=== PATIENT | male | born 1995 | race Caucasian/White ===

== ENCOUNTER 2017-05-31 11:49 | Emergency (ER) | payer BC, OTHER ==
[2017-05-31 12:12] VITALS: BP 110/84
[2017-05-31] MEDS ORDERED: Ondansetron ODT TAB* 4 MG PO ONE (12:24)
--- NOTE | 2017-05-31 13:10 | UC ---
Complaint Male HPI - HPI Summary HPI Summary: HEARTBURN, NAUSEA, VOMITING AND DIARRHEA SINCE 05/28/17. NO FEVER. NO ABDOMINAL PAIN. OCCASIONAL BURINING WITH URINATION. NO DISCHARGE. NO NEW SEXUAL PARTNERS. - History of Current Complaint Chief Complaint: UCGI Stated Complaint: NAUSEA VOMITING Time Seen by Provider: 05/31/17 12:01 Hx Obtained From: Patient Onset/Duration: Gradual Onset, Lasting Days, Still Present Timing: Lasting Days Severity Initially: Mild Severity Currently: Mild Pain Intensity: 1 Pain Scale Used: 0-10 Numeric Location: Suprapubic Character: Burning Associated Signs And Symptoms: Positive: Dysuria - MILD BURNING WITH URINATION, Nausea, Vomiting(# Of Episodes =) - 3 X PER DAY. Negative: Diaphoresis, Back Pain, Fever, Hematuria, Constipation - DIARRHEA, Blood in Stool, Rectal Pain - Allergies/Home Medications Allergies/Adverse Reactions: Allergies Allergy/AdvReac Type Severity Reaction Status Date / Time No Known Allergies Allergy Verified 05/31/17 12:01 PMH/Surg Hx/FS Hx/Imm Hx Previously Healthy: Yes - Surgical History Surgical History: Yes Surgery Procedure, Year, and Place: TONSILLECTOMY - Family History Known Family History: Positive: None Negative: Renal Disease - Social History Occupation: Employed Full-time Lives: With Family Alcohol Use: Weekly Substance Use Type: None Smoking Status (MU): Current Every Day Smoker Type: Cigarettes Amount Used/How Often: 1/2 PPD Have You Smoked in the Last Year: Yes - Immunization History Most Recent Influenza Vaccination: NONE 2015 Most Recent Tetanus Shot: UTD Most Recent Pneumonia Vaccination: N/A Review of Systems Constitutional: Negative Skin: Negative Eyes: Negative ENT: Negative Respiratory: Negative Cardiovascular: Negative Gastrointestinal: Vomiting, Diarrhea, Nausea Genitourinary: Dysuria Motor: Negative Neurovascular: Negative Musculoskeletal: Negative Neurological: Negative Psychological: Negative All Other Systems Reviewed And Are Negative: Yes Physical Exam Triage Information Reviewed: Yes Appearance: Well-Appearing, No Pain Distress, Well-Nourished, Thin Vital Signs: Initial Vital Signs Temp 98.3 F 05/31/17 12:01 Pulse 86 05/31/17 12:01 Resp 16 05/31/17 12:01 BP 110/84 05/31/17 12:01 Pulse Ox 97 05/31/17 12:01 Vital Signs Reviewed: Yes Eye Exam: Normal ENT Exam: Normal ENT: Positive: Normal ENT inspection, Hearing grossly normal, Pharynx normal, TMs normal Dental Exam: Normal Neck exam: Normal Neck: Positive: Supple, Nontender Respiratory Exam: Normal Respiratory: Positive: Chest non-tender, Lungs clear, Normal breath sounds Cardiovascular Exam: Normal Cardiovascular: Positive: RRR, No Murmur Abdominal Exam: Normal Abdomen Description: Positive: Nontender, No Organomegaly, Soft. Negative: CVA Tenderness (R), CVA Tenderness (L) Musculoskeletal Exam: Normal Neurological Exam: Normal Psychological Exam: Normal Skin Exam: Normal Complaint Male Course/Dx - Differential Dx/Diagnosis Differential Diagnosis/HQI/PQRI: Urinary Tract Infection Provider Diagnoses: GASTROENTERITIS Discharge - Discharge Plan Condition: Stable Disposition: HOME Prescriptions: Ondansetron ODT TAB* [Zofran 4 MG Odt TAB*] 4 mg PO Q8H PRN #6 tab.odt PRN Reason: Vomiting Patient Education Materials: Gastroenteritis (ED), Acute Nausea and Vomiting ( ED) Forms: *Work Release Referrals: Percy Prabhakar DO [Primary Care Provider] -
== END 2017-05-31 12:56 | disposition home or self-care (01) ==
LOC: UCCORT 11:49
DX: K52.9 Noninfective gastroenteritis and colitis, unspecified (principal); R30.0 Dysuria; F17.210 Nicotine dependence, cigarettes, uncomplicated
CPT/HCPCS: 81003; 99202; A9270-GY; G0463